=== PATIENT | male | born 1965 | race Caucasian/White ===

== ENCOUNTER 2018-06-08 16:07 | Emergency (ER) | payer OTHER ==
[~2018-06-08] VITALS: Ht 180.3 cm; Wt 124.7 kg
[~2018-06-08 16:07] MED LIST: FLEXERIL PO; LISINOPRIL20 MG PO; PERCOCET 7.5-31 EACH PO
[2018-06-08] MEDS ORDERED: HYDROCHLOROTHIA25 M1 PO (16:26)
[2018-06-08] MEDS ORDERED: LOPRESSOR100 M1 PO (16:26)
[2018-06-08] MEDS ORDERED: UNICOMPLEX M TA1 TA1 PO (16:27)
[2018-06-08] MEDS ORDERED: NORCO 5-325 TA1 EAC1 PO (16:33)
[2018-06-08] MEDS ORDERED: VOLTAREN GEL 1100 G1 TOP (16:33)
[2018-06-08 16:48] VITALS: BP 155/95
== END 2018-06-08 16:49 | disposition home or self-care (01) ==
LOC: M.ERS 16:07
DX: M75.22 Bicipital tendinitis, left shoulder (principal); M25.522 Pain in left elbow; G89.29 Other chronic pain; I10 Essential (primary) hypertension

== ENCOUNTER 2020-09-01 17:50 | Emergency (ER) | payer OTHER ==
[~2020-09-01] VITALS: Ht 180.3 cm; Wt 117.0 kg
[~2020-09-01 17:50] MED LIST changes: +HYDROCHLOROTHIA25 M1 PO; +LOPRESSOR100 M1 PO; +NORCO 5-325 TA1 EAC1 PO; +UNICOMPLEX M TA1 TA1 PO; +VOLTAREN GEL 1100 G1 TOP
[2020-09-01 18:33] VITALS: BP 122/70
== END 2020-09-01 18:33 | disposition home or self-care (01) ==
LOC: M.ERS 17:50
DX: B34.9 Viral infection, unspecified (principal); Z20.822 Contact with and (suspected) exposure to COVID-19; I10 Essential (primary) hypertension; Z79.899 Other long term (current) drug therapy

== ENCOUNTER → 2021-02-19 | Outpatient (CLI) | payer OTHER ==
[2021-02-19 07:37] LABS: CREATININE 1.2 mg/dL (0.6-1.3)
== END ==
LOC: M.LAB 07:00 → M.CT 08:00
PROVIDERS: ATTEND Nurse Practitioner Family
DX: Z01.812 Encounter for preprocedural laboratory examination (principal); I70.0 Atherosclerosis of aorta; I25.10 Atherosclerotic heart disease of native coronary artery without angina pectoris; R16.1 Splenomegaly, not elsewhere classified; K76.0 Fatty (change of) liver, not elsewhere classified; N28.1 Cyst of kidney, acquired; E04.9 Nontoxic goiter, unspecified; R93.89 Abnormal findings on diagnostic imaging of other specified body structures

== ENCOUNTER → 2021-04-02 | Outpatient (CLI) | payer OTHER | LOC: M.ULTRA 12:38 | PROVIDERS: ATTEND Nurse Practitioner Family | DX: E04.2 Nontoxic multinodular goiter (principal) ==

== ENCOUNTER → 2021-04-26 | Outpatient (CLI) | payer OTHER ==
--- NOTE | 2021-05-23 16:06 | PATH ---
[address] [address] PATHOLOGY RPT PROCEDURE Name: GE[place] BROWER Room: [facility].Jaspal.#: [id number] Admission: 04/26/21 Date of : 67 Discharge: Report #: [id number] Path Case #: [id number] Note [facility] Accession Number: [id number] TESTS RESULT FLAG UNITS REF RANGE LAB Source: LEFT THRYOID DIAGNOSIS: LEFT THRYOID INCONCLUSIVE. B[place]ESDA CATEGORY III. FOLLICULAR LESION OF UNDETERMINED SIGNIFICANCE. SPECIMEN CONSISTS OF ABUNDANT FOLLICULAR CELLS WITH SCANT COLLOID. THE DIFFERENTIAL DIAGNOSIS INCLUDES CELLULAR ADENOMATOID NODULE AND FOLLICULAR NEOPLASM. THIS INTERPRETATION INCLUDES EVALUATION OF A CELL BLOCK. COMMENT, THE CELL BLOCK AND THIN PREP WERE AVAILABLE FOR REVIEW WHICH REVEALED PREDOMINANTLY, A MICROFOLLICULAR ARCHITECTURE WITH SCANT COLLOID. THERE IS SOME HURTHLE CELL CHANGES AND SOME ATYPIA ALSO PRESENT. THE SPECIMEN IS SENT FOR THYROMIR MOLECULAR TESTING AND AN ADDITIONAL REPORT WILL FOLLOW. UNFORTUNATELY AFTER EXTENSIVE SEARCH AT THE [facility] NO SLIDES COULD BE LOCATED ONLY THE SPECIMEN THAT WAS COLLECTED IN CYTOLOGY FLUID WAS RECEIVED AND WAS AVAILABLE FOR REVIEW. THE CELL BLOCK WAS WELL PRESERVED AND ADEQUATE FOR EVALUATION. Pathologist ICD10: 01 R89.6 Addendum: 01 Special studies report received from [facility], [address] [place] [address], on case [id number], labeled with their number [id number], dated 05/22/2021. . RESULTS SUMMARY Nodule Cytopathology ThyGeNEXT ThyraMIR Right Thyroid FNA Not Specified No mutations Detected Negative, ([id number]) Level 1 . . INTERPRETATION AND RISK ASSESSMENT Right Thyroid FNA ([id number]) Cytology Dx Not Specified ThyGeNEXT No Mutations Detected ThyraMIR Negaive, Level 1 Approximately 3% Risk of Malignancy* . *Risk assessment is based on disease prevalence of associated cytology diagnosis, mutational changes, microRNA expression, clinical experience, and clinical validation(1,2) 1. Taisha FOY, et al. Diagn Cytopathol. 2020; 48(12):8426-1251. 2. Tye ALMONTE et al. Diagn Cytopathol. 2019;47(4):268-274. [place] [address] PATHOLOGY RPT PROCEDURE Name: GEORGIA BROWRE Room: [facility]#: [id number] Admission: 04/26/21 Date of : 67 Discharge: Report #: [id number] Path Case #: [id number] . TEST RESULT INTERPRETATION Right Thyroid FNA ([id number]) . Very low risk of malignancy. . . Quality determination of extracted DNA and RNA from the submitted sample met adequacy criteria sufficient for analysis and interpretation as origin from thyroid. . In the absence of cytology diagnostic category, as is the case here, associated risk of Sheridan III/IV is assumed. Cytology features may further assist prediction of malignancy with increasing risk for higher Sheridan category classification and decreasing risk for lower Sheridan category classification. . Thyroid nodules showing Sheridan III (AUS/FLUS) or Sheridan IV (FN/SFN) cytology with multiplatform molecular test (MPTX) results of negative ThyGeNEXT and Level-1 (negative) ThyraMIR status are highly likely to be benign (approximately 91-99% likelihood of being benign, 97% prevalence adjusted test performance) (1,2). Given the likelihood for benign disease, continued surveillance can be a suitable management approach. Actual management may depend on other factors such as overall clinical findings besides integrated molecular interpretation alone. . This MPTX test detects only the mutations listed below. While these mutations are present in up to 70% of thyroid cancers, other rare mutations associated with thyroid cancer may be present but not detected. Because thyroid nodular disease can contain multifocal areas of heterogeneous pathology, sampling variation may occasionally result in under diagnosis of existing pathology. Hence, all decision factors, including but not limited to, patient characteristics, clinical history, ultrasound results, nodule size, and cytology results need to be taken into account in diagnosis and determining patient management. . 1. Taisha FOY, María AE, Jose JW, et al. Multiplatform molecular test performance in indeterminate thyroid nodules. Diagn Cytopathol. 2020 May; 48(12): 5232-7490, 2. Tye AB and Ami FABIAN. The utility of combined mutation analysis and microRNA classification in reclassifying cancer risk of cytologically indeterminate thyroid nodules. Diagn Cytopathol 2019 Sep; 47(4); 268-274 . A complete copy of the report is on file. . Professional and Technical services performed by [facility], [address] [place] [address]. . (JAVIER:kierra 05/22/2021) [place] [address] PATHOLOGY RPT PROCEDURE Name: GE[place] BROWER Room: [facility] Harris#: [id number] Admission: 04/26/21 Date of : 67 Discharge: Report #: [id number] Path Case #: [id number] . . [facility]/05/22/2021 Addendum Electronically Signed by Valeriy Mullins MD, Pathologist Signed out by: Clark Luis MD, Pathologist NPI- [id number] Performed by: Khushi Wooten, [employer] ([facility]) Gross description: 35ML, BLOODY, RED /LCS 05/06/2021 1319 Local FLAG LEGEND: L-Low Normal,H-High Normal,LL-Alert Low,HH-Alert High <-Panic Low,>-Panic High,A-Abnormal,AA-Critical Abnormal Performed at: [facility] [place] [address] Clark Luis MD, Performed at: [address], [place], [place] [id number] MD Clark Luis MD Phone: [phone]
== END ==
LOC: M.ULTRA 07:54
PROVIDERS: ATTEND Nurse Practitioner Family
DX: E04.1 Nontoxic single thyroid nodule (principal); R89.6 Abnormal cytological findings in specimens from other organs, systems and tissues; Z98.890 Other specified postprocedural states; Z79.899 Other long term (current) drug therapy